=== PATIENT | male | born 1985 | race Hispanic/Latino ===

== ENCOUNTER 2017-10-28 13:21 | Emergency (ER) | payer OTHER, SELFPAY ==
[2017-10-28] MEDS ORDERED: NA CHLORIDE 0.9% 1,000 ML ONE (15:13)
[2017-10-28] MEDS ORDERED: ONDANSETRON 4 MG/2 ML VIAL ONE (15:13)
[2017-10-28] MEDS ORDERED: KETOROLAC 30 MG/ML INJ ONE (15:13)
[2017-10-28 15:29] LABS: Absolute Lymphocytes (CBC) 1.6 K/uL (0.7-4.9); Absolute Monocytes 0.3 K/uL (0.1-1.3); Absolute Neutrophil 2.4 K/uL (1.8-8.0); Basophils % 0.9 % (0-1.3); Eosinophils % 2.8 % (0-4.4); Lymphocytes % 35.6 % (15.3-44.8); MCH 32.7 pg (27.0-35.0); MCV 95.4 fL (80-100); MPV 7.5 fL (7.6-11.3); Monocytes % 6.7 % (3.3-12.3); RBC Red Blood Cell Count 4.93 M/uL (4.33-5.43)
[2017-10-28 15:39] LABS: Bicarbonate 29 mEq/L (21-31); Glucose Level 91 mg/dL (65-120); Lipase 35 U/L (22-51); Sodium Level 135 mEq/L (135-145)
--- NOTE | 2017-10-28 15:43 | RAD REPORT ---
EXAM DESCRIPTION: CT - Stone Protocol - 10/28/2017 3:28 pm CLINICAL HISTORY: Abdominal pain, left flank pain COMPARISON: None. TECHNIQUE: Axial 5 mm thick images were obtained without oral or IV contrast. The [id number] span s the entirety of the system partially obscuring uppermost abdomen and lung bases. All CT scans are performed using dose optimization technique as appropriate and may include automated exposure control or mA/KV adjustment according to patient size. FINDINGS: No hydronephrosis is present and no obstructing ureteral calculi. No suspicious renal mass es. Isodense masses and pyelonephritis are not excluded on a stone protocol CT scan. A 3 millimeter n onobstructing calyx calcification present mid right kidney. Partially filled urinary bladder shows no suspicious finding. No prostate or seminal vesicle abnormality seen. Imaged portions of the liver, spleen and pancreas show no suspicious findings on non-contrast imaging . No gallbladder or biliary tree abnormality identified. No significant adrenal finding. No suspicious bowel findings. No hernia, mass or bulky lymphadenopathy noted. No free air, free fluid or inflammatory stranding. No significant bony abnormality. IMPRESSION: No hydronephrosis, obstructing calculus or acute finding. A 3 mm calyx calcification present on the right. Isodense masses and pyelonephritis are not excluded on stone protocol technique. Remainder the study also without acute or significant finding.
[2017-10-28 15:45] LABS: ALT/SGPT 22 IU/L (10-60); AST/SGOT 22 IU/L (10-42); Albumin 4.5 g/dL (3.2-5.5); Alkaline Phosphatase 60 IU/L (42-121); Amylase Level 79 U/L (28-100); BUN Blood Urea Nitrogen 15 mg/dL (6-20); Bilirubin Direct 0.1 mg/dL (0-0.2); Bilirubin Total 0.9 mg/dL (0.3-1.2); Protein, Total 7.4 g/dL (6.0-8.3)
--- NOTE | 2017-10-28 16:16 | ER ---
Nurse's Notes [facility] Name: Danny Anderson II Age: 32 yrs Sex: Male : 1985 Arrival Date: 10/28/2017 Time: 13:23 Bed 16 Private MD: None, None Diagnosis: Flank Pain Presentation: 10/28 13:47 Presenting complaint: Patient states: " I am having pain in my side and they told me a ph while back that I had a kidney disease and I wanted to get it checked out." Pt reports pain in L upper flank and nausea, denies V/D or urinary symptoms. Transition of care: patient was not received from another setting of care. Onset of symptoms was October 28, 2017. Risk Assessment: Do you want to hurt yourself or someone else? Patient reports no desire to harm self or others. Initial Sepsis Screen: Does the patient meet any 2 criteria? No. Patient's initial sepsis screen is negative. Does the patient have a suspected source of infection? No. Patient's initial sepsis screen is negative. Care prior to arrival: None. 13:47 Method Of Arrival: Ambulatory ph 13:47 Acuity: UMER 3 ph Historical: - Allergies: 13:50 No Known Allergies; ph - PMHx: 13:50 Bipolar disorder; Schizophrenia; ph - PSHx: 13:50 None; ph - Immunization history:: Adult Immunizations unknown. - Social history:: Smoking status: Patient uses tobacco products, denies chronic smoking, but will smoke occasionally. - Ebola Screening: : No symptoms or risks identified at this time. Screenin:06 Abuse screen: Denies threats or abuse. Denies injuries from another. Nutritional aj screening: No deficits noted. Tuberculosis screening: No symptoms or risk factors identified. Fall Risk None identified. Assessment: 15:06 General: Appears in no apparent distress. uncomfortable, Behavior is calm, cooperative, aj appropriate for age. Pain: Complains of pain in anterior aspect of left lateral abdomen and posterior aspect of left lateral abdomen. Neuro: Level of Consciousness is awake, alert, obeys commands, Oriented to person, place, time, situation, Appropriate for age. Respiratory: Airway is patent Respiratory effort is even, unlabored, Respiratory pattern is regular, symmetrical. : Reports pain in right flank(s). Derm: Skin is intact, is healthy with good turgor, Skin is pink, warm \\T\\ dry. normal. 16:44 Reassessment: Patient appears in no apparent distress at this time. No changes from aj previously documented assessment. Patient and/or family updated on plan of care and expected duration. Pain level reassessed. Patient is alert, oriented x 3, equal unlabored respirations, skin warm/dry/pink. Patient states feeling better. Patient states symptoms have improved. Vital Signs: 13:50 BP 102 / 66; Pulse 70; Resp 18; Temp 97.5; Pulse Ox 99% on R/A; Weight 61.23 kg; Height ph 4 ft. 11 in. (149.86 cm); Pain 4/10; 16:44 BP 105 / 75; Pulse 86; Resp 16; Temp 98.4; Pulse Ox 99% on R/A; aj 13:50 Body Mass Index 27.27 (61.23 kg, 149.86 cm) ph ED Course: 13:23 Patient arrived in ED. mr 13:23 None, None is Private Physician. mr 13:50 Triage completed. ph 15:00 Judy Hilton, ZACHARIAH is Primary Nurse. aj 15:00 Phoenix Cedeño PA is PHCP. [facility] 15:00 Scar Parrish MD is Attending Physician. [facility] 15:06 Arm band placed on left wrist. Patient placed. aj 15:06 Patient has correct armband on for positive identification. 15:19 Patient moved to MD. 15:22 Initial lab(s) drawn, by nj, sent to lab. Inserted saline lock: 20 gauge in left dh3 antecubital area, using aseptic technique. Blood collected. 15:28 CT completed. Patient tolerated procedure well. Patient moved back from MD. [facility] 15:28 CT Stone Protocol In Process Unspecified. EDMS 16:44 No provider procedures requiring assistance completed. IV discontinued, intact, aj bleeding controlled, No redness/swelling at site. Pressure dressing applied. Administered Medications: 15:22 Drug: NS 0.9% 1000 ml Route: IV; Rate: 125 ml/hr; Site: left antecubital; aj 16:47 Follow up: Response: No adverse reaction; IV Status: Order to discontinue infusion; IV aj Intake: 250ml 15:23 Drug: Ketorolac 30 mg Route: IVP; Site: left antecubital; aj 16:48 Follow up: Response: Pain is decreased aj 15:23 Drug: Zofran 4 mg Route: IVP; Site: left antecubital; aj 16:47 Follow up: Response: Nausea is decreased aj Intake: 16:47 IV: 250ml; Total: 250ml. aj Outcome: 16:15 Discharge ordered by . smith 16:44 Discharged to home ambulatory. agnes 16:44 Condition: good 16:44 Discharge instructions given to patient, Instructed on discharge instructions, follow up and referral plans. Demonstrated understanding of instructions, follow-up care. 16:48 Patient left the ED. aj Signatures: Dispatcher [employer] Judy John RN RN aj Mickail, Joel, PA PA jmm Rivera, Maria mr Hall, Patricia, RN RN ph Warren, Shannon sw McGuire, Victoria [facility] Rylee Mckenzie 3
--- NOTE | 2017-10-28 16:16 | EDPHYS ---
Physician Documentation [facility] Name: Danny Anderson II Age: 32 yrs Sex: Male : 1985 Arrival Date: 10/28/2017 Time: 13:23 Bed 16 Private MD: None, None ED Physician Scar Parrish HPI: 10/28 15:11 This 32 yrs old Male presents to ER via Ambulatory with complaints of Flank jmm Pain. 15:11 The pain does not radiate. Onset: The symptoms/episode began/occurred gradually, at jmm noon. Modifying factors: The symptoms are alleviated by nothing. the symptoms are aggravated by nothing. Associated signs and symptoms: Pertinent positives: nausea, Pertinent negatives: vomiting. This is a 32 year old male that presents to the ED with left flank pain beginning at approx 12 pm today. patient states he was diagnosed with an unspecified kidney disease 1 month ago. Patient denies fever, vomiting, but states he feels nauseous. Patient denies testicular pain or abdominal pain. . Historical: - Allergies: 13:50 No Known Allergies; ph - PMHx: 13:50 Bipolar disorder; Schizophrenia; ph - PSHx: 13:50 None; ph - Immunization history:: Adult Immunizations unknown. - Social history:: Smoking status: Patient uses tobacco products, denies chronic smoking, but will smoke occasionally. - Ebola Screening: : No symptoms or risks identified at this time. ROS: 15:11 Constitutional: Negative for fever, chills, and weight loss, Cardiovascular: Negative jmm for chest pain, palpitations, and edema, Respiratory: Negative for shortness of breath, cough, wheezing, and pleuritic chest pain. 15:11 Skin: Negative for injury, rash, and discoloration, Neuro: Negative for headache, weakness, numbness, tingling, and seizure. 15:11 Abdomen/GI: Positive for flank pain. 15:11 Back: Positive for flank pain. 15:11 All other systems are negative. Exam: 15:11 Head/Face: atraumatic. Cardiovascular: Regular rate and rhythm. No gallops, murmurs, jmm or rubs. Full/Equal distal pulses. Respiratory: Lungs have equal breath sounds bilaterally, clear to auscultation. No rales, rhonchi or wheezes noted. No increased work of breathing, no retractions or nasal flaring. 15:11 Constitutional: The patient appears alert, awake, anxious. 15:11 Abdomen/GI: Inspection: abdomen appears normal, Bowel sounds: normal, Palpation: soft, mild abdominal tenderness, in the posterior aspect of left lateral abdomen. 15:11 Back: CVA tenderness, that is mild, is noted on the left. 15:11 Musculoskeletal/extremity: ROM: intact in all extremities. 15:11 Skin: Appearance: Color: normal in color. 15:11 Neuro: Orientation: is normal, Mentation: is normal, Memory: is normal, Gait: is steady. Vital Signs: 13:50 BP 102 / 66; Pulse 70; Resp 18; Temp 97.5; Pulse Ox 99% on R/A; Weight 61.23 kg; Height ph 4 ft. 11 in. (149.86 cm); Pain 4/10; 16:44 BP 105 / 75; Pulse 86; Resp 16; Temp 98.4; Pulse Ox 99% on R/A; aj 13:50 Body Mass Index 27.27 (61.23 kg, 149.86 cm) ph MDM: 15:09 Patient medically screened. [facility] 15:11 Differential diagnosis: nephrolithiasis, pyelonephritis. Data reviewed: vital signs, [facility] nurses notes. 15:47 Data reviewed: radiologic studies, CT scan. [facility] 15:47 Response to treatment: the patient's symptoms have resolved after treatment. ED course: [facility] Patient states feeling much better after administration of ketorloc. CT imagaing studies reveal no acute intrabdominal process. Patient is advised to establish himself with PCP. Given return precautions. Agrees with the plan of care. . 10/28 14:26 Order name: Urine Drug Screen [facility] 10/28 14:26 Order name: Urine Culture [facility] 10/28 14:26 Order name: Urine Microscopic Only [facility] 10/28 15:03 Order name: Amylase, Serum; Complete Time: 15:47 [facility] 10/28 15:03 Order name: Basic Metabolic Panel; Complete Time: 15:47 [facility] 10/28 15:03 Order name: CBC with Diff; Complete Time: 15:47 [facility] 10/28 15:03 Order name: Creatinine for Radiology; Complete Time: 15:47 [facility] 10/28 15:03 Order name: Hepatic Function; Complete Time: 15:47 [facility] 10/28 15:03 Order name: Lipase; Complete Time: 15:47 [facility] 10/28 15:17 Order name: CT Stone Protocol; Complete Time: 15:47 [facility] 10/28 15:35 Order name: Urine Dipstick--Ancillary (enter results) bd 10/28 14:26 Order name: Urine Dipstick-Ancillary (obtain specimen); Complete Time: 16:24 snw 10/28 15:03 Order name: IV Saline Lock; Complete Time: 15:22 [facility] 10/28 15:03 Order name: Labs collected and sent; Complete Time: 15:22 [facility] Administered Medications: 15:22 Drug: NS 0.9% 1000 ml Route: IV; Rate: 125 ml/hr; Site: left antecubital; aj 16:47 Follow up: Response: No adverse reaction; IV Status: Order to discontinue infusion; IV aj Intake: 250ml 15:23 Drug: Ketorolac 30 mg Route: IVP; Site: left antecubital; aj 16:48 Follow up: Response: Pain is decreased aj 15:23 Drug: Zofran 4 mg Route: IVP; Site: left antecubital; aj 16:47 Follow up: Response: Nausea is decreased Disposition: 18:50 Co-signature as Attending Physician, Scar Parrish MD I agree with the assessment and kdr plan of care. Disposition: 10/28/17 16:15 Discharged to Home. Impression: Flank Pain. - Condition is Stable. - Discharge Instructions: Flank Pain. - Medication Reconciliation Form, Thank You Letter, Antibiotic Education, Prescription Opioid Use form. - Follow up: Private Physician; When: As needed; Reason: Continuance of care. - Notes: Please follow up with your primary care provider in 1 to 2 days for reevaluation. Please return to the ED if you develop increased pain, vomiting, fever, abdominal pain, or any other concerning symptoms. Signatures: Dispatcher [employer] Judy John RN RN aj Rittger, Kevin, MD MD kdr Therrien, Shelly, [employer] SAW OPERATOR-C [employer] SAW OPERATOR-Csnw Phoenix Cedeño PA PA Debra Cao RN RN ph Corrections: (The following items were deleted from the chart) 16:48 16:15 10/28/2017 16:15 Discharged to Home. Impression: Flank Pain. Condition is Stable. aj Forms are Medication Reconciliation Form, Thank You Letter, Antibiotic Education, Prescription Opioid Use. Follow up: Private Physician; When: As needed; Reason: Continuance of care. smith
[2017-10-28 17:08] LABS: Urine Blood TRACE (NEG); Urine Glucose NEGATIVE (NEG); Urine Protein NEGATIVE (NEG)
[2017-10-28 17:12] LABS: Barbiturates NEGATIVE (NEGATIVE); Benzodiazepines NEGATIVE (NEGATIVE); Cocaine NEGATIVE (NEGATIVE); METHAMPHETAM NEGATIVE (NEGATIVE); Opiates NEGATIVE (NEGATIVE); Phencyclidine NEGATIVE (NEGATIVE); THC Cannibis POSITIVE (NEGATIVE)
[2017-10-28 18:11] LABS: Calcium Oxalate Crystals- Ur FEW (NONE SEEN); Urine Bacteria <20 /HPF (NONE SEEN); Urine Culture Reflex Order NOT NEEDED; Urine RBC <5 /HPF (NONE SEEN)
== END 2017-10-28 16:48 | disposition home or self-care (01) ==
LOC: ER 13:21
DX: R10.9 Unspecified abdominal pain (principal); Z72.0 Tobacco use
CPT/HCPCS: 36415; 74176; 76377; 80048; 80076; 80307; 81003; 81015; 82150; 83690; 85025; 87086; 87088; 96361; 96374; 96375; 99284; J2405; J7030

== ENCOUNTER 2018-07-20 23:27 | Inpatient (IN) | payer OTHER ==
[2018-07-20] MEDS ORDERED: ACTIVATED CHARCOAL 25 GM/120 ML TUBE ONE (23:58)
[2018-07-20] MEDS ORDERED: NA CHLORIDE 0.9% 1,000 ML ONE (23:59)
[2018-07-21 00:05] LABS: Absolute Lymphocytes (CBC) 1.8 K/uL (0.7-4.9); Absolute Monocytes 0.3 K/uL (0.1-1.3); Absolute Neutrophil 1.7 K/uL (1.8-8.0); Eosinophils % 1.4 % (0-4.4); Hematocrit 43.8 % (39.6-49.0); Lymphocytes % 46.3 % (15.3-44.8); MPV 7.4 fL (7.6-11.3); Monocytes % 8.6 % (3.3-12.3); RBC Red Blood Cell Count 4.61 M/uL (4.33-5.43)
[2018-07-21] MEDS ORDERED: ONDANSETRON 4 MG/2 ML VIAL ONE (00:06)
[2018-07-21 00:08] LABS: Protime INR 0.97
[2018-07-21 00:37] LABS: ALT/SGPT 24 U/L (12-78); AST/SGOT 18 U/L (15-37); Albumin 3.6 g/dL (3.4-5.0); Alkaline Phosphatase 83 U/L (45-117); BUN Blood Urea Nitrogen 9 mg/dL (7-18); Bicarbonate 30 mmol/L (21-32); Bilirubin Direct < 0.1 mg/dL (0-0.2); Bilirubin Total 0.2 mg/dL (0.2-1.0); Glucose Level 153 mg/dL (74-106); Potassium 3.4 mmol/L (3.5-5.1); Protein, Total 6.6 g/dL (6.4-8.2); Sodium Level 141 mmol/L (136-145)
[2018-07-21 00:52] LABS: Urine Blood NEGATIVE (NEG); Urine Glucose NEGATIVE (NEG); Urine Protein NEGATIVE (NEG); Urine Specific Gravity 1.015 (1.005-1.030)
--- NOTE | 2018-07-21 01:22 | EDPHYS ---
Physician Documentation [facility] Name: Danny Anderson II Age: 33 yrs Sex: Male : 1985 Arrival Date: 07/20/2018 Time: 23:32 Bed 3 Private MD: ED Physician Kt Blanca HPI: 07/21 01:55 This 33 yrs old Male presents to ER via EMS with complaints of Overdose. wa 01:55 The patient presents to the emergency department after a known overdose, that was wa intentional. Context: Method: the patient has a confirmed or suspected ingestion, Time: just prior to arrival, Extent: the original prescription was for 55 pills/capsules, 55 hydroxyzine. 7 olanzapine, the OD/poisoning occurred at at home, and was witnessed by family, Psychiatric history: the patient has a known psychiatric disorder, bipolar disorder, schizophrenia, Previous OD/poisoning history: yes. Associated signs and symptoms: Pertinent negatives: anxiety, apnea, diarrhea, dizziness, loss of consciousness, palpitations, shortness of breath, visual hallucinations, vomiting. Severity of symptoms: At their worst the symptoms were moderate in the emergency department the symptoms are unchanged. The patient has experienced a previous episode. The patient has not recently seen a physician. Historical: - Allergies: 07/20 23:38 No Known Allergies; fc - Home Meds: 23:38 hydroxyzine HCl 50 mg Oral tab 1 tab three times a day [Active]; olanzapine 10 mg oral fc tab 1 tab once daily [Active]; - PMHx: 23:38 Bipolar disorder; Schizophrenia; fc - PSHx: 23:38 None; fc - Immunization history:: Last tetanus immunization: up to date Flu vaccine is up to date. - Social history:: Smoking status: Patient/guardian denies using tobacco, Patient/guardian denies using alcohol, street drugs. - Ebola Screening: : Patient negative for fever greater than or equal to 101.5 degrees Fahrenheit, and additional compatible Ebola Virus Disease symptoms Patient denies exposure to infectious person Patient denies travel to an Ebola-affected area in the 21 days before illness onset. - Family history:: not pertinent. - Hospitalizations: : No recent hospitalization is reported. ROS: 07/21 01:58 Constitutional: Negative for fever, chills, and weight loss, Eyes: Negative for injury, wa pain, redness, and discharge, ENT: Negative for injury, pain, and discharge, Neck: Negative for injury, pain, and swelling, Cardiovascular: Negative for chest pain, palpitations, and edema, Respiratory: Negative for shortness of breath, cough, wheezing, and pleuritic chest pain, Abdomen/GI: Negative for abdominal pain, nausea, vomiting, diarrhea, and constipation, Back: Negative for injury and pain, : Negative for injury, bleeding, discharge, and swelling, MS/Extremity: Negative for injury and deformity, Skin: Negative for injury, rash, and discoloration, Neuro: Negative for headache, weakness, numbness, tingling, and seizure. Psych: Positive for suicide gesture, suicidal ideation. All other systems are negative. Exam: 01:58 Constitutional: This is a well developed, well nourished patient who is awake, alert, wa and in no acute distress. Head/Face: Normocephalic, atraumatic. Eyes: Pupils equal round and reactive to light, extra-ocular motions intact. Lids and lashes normal. Conjunctiva and sclera are non-icteric and not injected. Cornea within normal limits. Periorbital areas with no swelling, redness, or edema. ENT: Nares patent. No nasal discharge, no septal abnormalities noted. Tympanic membranes are normal and external auditory canals are clear. Oropharynx with no redness, swelling, or masses, exudates, or evidence of obstruction, uvula midline. Mucous membranes moist. Neck: Trachea midline, no thyromegaly or masses palpated, and no cervical lymphadenopathy. Supple, full range of motion without nuchal rigidity, or vertebral point tenderness. No Meningismus. Chest/axilla: Normal chest wall appearance and motion. Nontender with no deformity. No lesions are appreciated. Cardiovascular: Regular rate and rhythm with a normal S1 and S2. No gallops, murmurs, or rubs. Normal PMI, no JVD. No pulse deficits. Respiratory: Lungs have equal breath sounds bilaterally, clear to auscultation and percussion. No rales, rhonchi or wheezes noted. No increased work of breathing, no retractions or nasal flaring. Abdomen/GI: Soft, non-tender, with normal bowel sounds. No distension or tympany. No guarding or rebound. No evidence of tenderness throughout. Back: No spinal tenderness. No costovertebral tenderness. Full range of motion. Skin: Warm, dry with normal turgor. Normal color with no rashes, no lesions, and no evidence of cellulitis. MS/ Extremity: Pulses equal, no cyanosis. Neurovascular intact. Full, normal range of motion. Neuro: Awake and alert, GCS 15, oriented to person, place, time, and situation. Cranial nerves II-XII grossly intact. Motor strength 5/5 in all extremities. Sensory grossly intact. Cerebellar exam normal. Normal gait. 01:58 Psych: Behavior/mood is cooperative, Affect is flat, Patient having thoughts of suicide. Judgement / Insight is normal. Delusions/hallucinations are not present. Vital Signs: 07/20 23:25 BP 146 / 98; Pulse 97; Resp 18; Temp 97.8(O); Pulse Ox 100% on R/A; Weight 61.23 kg fc (R); Height 5 ft. 2 in. (157.48 cm) (R); Pain 0/10; 23:45 BP 129 / 83; Pulse 85; Resp 18; Pulse Ox 99% on R/A; ao 07/21 00:00 BP 126 / 79; Pulse 77; Resp 18; Pulse Ox 99% on R/A; ao 00:15 BP 126 / 89; Pulse 100; Resp 18; Pulse Ox 99% on R/A; ao 00:30 BP 125 / 74; Pulse 79; Resp 16; Pulse Ox 98% on R/A; ao 00:50 BP 108 / 68; Pulse 78; Resp 15; Pulse Ox 98% on R/A; Pain 0/10; ao 01:15 BP 103 / 73; Pulse 75; Resp 19; Pulse Ox 98% on R/A; ao 01:40 BP 109 / 63; Pulse 75; Resp 16; Pulse Ox 98% on R/A; ao 02:00 BP 101 / 72; Pulse 73; Resp 16; Pulse Ox 73% on R/A; Pain 0/10; ao 02:15 BP 103 / 72; Pulse 78; Resp 18; Pulse Ox 99% on R/A; ao 07/20 23:25 Body Mass Index 24.69 (61.23 kg, 157.48 cm) fc MDM: 07/20 23:37 Patient medically screened. ak 07/21 01:59 Differential diagnosis: Ingestion/exposure to ingestion. charcoal. EKG. per poison wa control, bicarb if wide QRS. 02:01 Data reviewed: vital signs, nurses notes. Test interpretation: by ED physician or ak midlevel provider: K 3.4. UDS noted for THC. Glucose 153. Response to treatment: the patient's symptoms have mildly improved after treatment. 07/20 23:38 Order name: Acetaminophen; Complete Time: 01:38 ak 07/20 23:38 Order name: Basic Metabolic Panel; Complete Time: 01:38 ak 07/20 23:38 Order name: CBC with Diff; Complete Time: 01:38 ak 07/20 23:38 Order name: ETOH Level; Complete Time: 01:38 ak 07/20 23:38 Order name: Hepatic Function; Complete Time: 01:38 ak 07/20 23:38 Order name: PT-INR; Complete Time: 01:38 ak 07/20 23:38 Order name: Ptt, Activated; Complete Time: 01:38 ak 07/20 23:38 Order name: Salicylate; Complete Time: 01:38 ak 07/20 23:38 Order name: Urine Drug Screen; Complete Time: 01:38 ak 07/20 23:38 Order name: EKG; Complete Time: 23:39 ak 07/21 00:38 Order name: Urine Dipstick--Ancillary (enter results); Complete Time: 01:38 [facility] 07/20 23:38 Order name: EKG - Nurse/Tech; Complete Time: 23:42 ak 07/20 23:38 Order name: IV Saline Lock; Complete Time: 23:42 ak 07/20 23:38 Order name: Labs collected and sent; Complete Time: 23:42 ak 07/20 23:38 Order name: Urine Dipstick-Ancillary (obtain specimen); Complete Time: 00:47 ak 07/21 01:30 Order name: CONS Pharmacy Consult EDMS 07/21 01:30 Order name: Regular EDMS Administered Medications: 07/20 23:55 Drug: NS 0.9% 1000 ml Route: IV; Rate: 1 bolus; Site: right upper arm; ao 07/21 02:21 Follow up: IV Status: Completed infusion; IV Intake: 1000ml ao 07/20 23:55 Drug: Charcoal Suspension 50 grams Route: PO; ao 07/21 02:21 Follow up: Response: No adverse reaction ao 00:00 Drug: Zofran 4 mg Route: IVP; Site: right upper arm; ao 02:20 Follow up: Response: No adverse reaction ao Disposition: 07/21/18 01:21 Hospitalization ordered by Bijan Rader for Inpatient Admission. Preliminary diagnosis are Intentional drug overdose, Suicidal attempt. - Bed requested for Intensive Care Unit. - Status is Inpatient Admission. ao - Condition is Stable. - Problem is new. - Symptoms have improved. UTI on Admission? No Signatures: Dispatcher [employer] EDMS Paty Bonilla RN RN Savanah Downing RN ZACHARIAH Raji Fitzgerald RN RN ao [facility] MD MD wa Corrections: (The following items were deleted from the chart) 01:38 01:21 Hospitalization Ordered by Bijan Rader MD for Inpatient Admission. Preliminary diagnosis is Intentional drug overdose; Suicidal attempt. Bed requested for Telemetry/MedSurg (Inpatient). Status is Inpatient Admission. Condition is Stable. Problem is new. Symptoms have improved. UTI on Admission? No. wa 02:38 01:38 07/21/2018 01:21 Hospitalization Ordered by Bijan Rader MD for Inpatient ao Admission. Preliminary diagnosis is Intentional drug overdose; Suicidal attempt. Bed requested for Intensive Care Unit. Status is Inpatient Admission. Condition is Stable. Problem is new. Symptoms have improved. UTI on Admission? No. ebenezer
--- NOTE | 2018-07-21 01:22 | ER ---
Nurse's Notes [facility] Name: Danny Anderson II Age: 33 yrs Sex: Male : 1985 Arrival Date: 07/20/2018 Time: 23:32 Bed 3 Private MD: Diagnosis: Intentional drug overdose;Suicidal attempt Presentation: 07/20 23:25 Presenting complaint: EMS states: that pt took Hydroxyzine 50 mg 55 tablets and fc Olanzapine 10 mg 7 tablets at 2300 because his girlfriend was leaving him. Pt states that he was not trying to kill himself just trying to stop her from leaving. 23:25 Method Of Arrival: EMS: [facility] 23:32 Transition of care: patient was not received from another setting of care. Onset of fc symptoms was July 20, 2018 at 23:00. Risk Assessment: Do you want to hurt yourself or someone else? Patient reports desire/thoughts of hurting themselves or someone else. Provider notified. Initial Sepsis Screen: Does the patient meet any 2 criteria? HR > 90 bpm. Yes Does the patient have a suspected source of infection? No. Patient's initial sepsis screen is negative. Care prior to arrival: Medication(s) given: Normal saline infusion, 700 ml IV initiated. 18 GA, in the left antecubital area, Glucose check: 119. 23:32 Acuity: UMER 2 fc Historical: - Allergies: 23:38 No Known Allergies; fc - Home Meds: 23:38 hydroxyzine HCl 50 mg Oral tab 1 tab three times a day [Active]; olanzapine 10 mg oral fc tab 1 tab once daily [Active]; - PMHx: 23:38 Bipolar disorder; Schizophrenia; fc - PSHx: 23:38 None; fc - Immunization history:: Last tetanus immunization: up to date Flu vaccine is up to date. - Social history:: Smoking status: Patient/guardian denies using tobacco, Patient/guardian denies using alcohol, street drugs. - Ebola Screening: : Patient negative for fever greater than or equal to 101.5 degrees Fahrenheit, and additional compatible Ebola Virus Disease symptoms Patient denies exposure to infectious person Patient denies travel to an Ebola-affected area in the 21 days before illness onset. - Family history:: not pertinent. - Hospitalizations: : No recent hospitalization is reported. Screenin:25 Abuse screen: Denies threats or abuse. Nutritional screening: No deficits noted. fc Tuberculosis screening: No symptoms or risk factors identified. Fall Risk None identified. Assessment: 23:32 General: Appears in no apparent distress. uncomfortable, well groomed, well developed, ao Behavior is calm, cooperative, appropriate for age. Pain: Denies pain. Neuro: Level of Consciousness is awake, alert, obeys commands, Oriented to person, place, time, situation, Appropriate for age Moves all extremities. Full function Speech is normal, Facial symmetry appears normal. Cardiovascular: Heart tones S1 S2 Capillary refill < 3 seconds Patient's skin is warm and dry. Respiratory: Airway is patent Trachea midline Respiratory effort is even, unlabored, Respiratory pattern is regular, symmetrical. GI: Abdomen is flat, non-distended. : No signs and/or symptoms were reported regarding the genitourinary system. EENT: No signs and/or symptoms were reported regarding the EENT system. Derm: Skin is intact, Skin is pink, warm \\T\\ dry. normal, Skin temperature is warm. Musculoskeletal: Circulation, motion, and sensation intact. Range of motion:. 23:43 Reassessment: Poison control Mela notified of ingestion. Recommends charcoal now, fc complete toxic workup with UDS and EKG. Repeat Tylenol and ASA in 4 hrs. Monitor for tachycardia, prolonged QRS, and Seizures. If QRS > 100 then give Sodium Bicarb 3 amps in D5W 1000 ml. Give Benzo's if needed. Monitor for at least 6-8 hrs or when pt returns to baseline. 07/21 00:53 Reassessment: Patient appears in no apparent distress at this time. Patient and/or ao family updated on plan of care and expected duration. Pain level reassessed. Patient AOX4 talking to family at this time. Sitter at bedside one on one. 01:37 Reassessment: Patient appears in no apparent distress at this time. Family left room. ao Patient with eyes close in no apparent distress. sitter at bedside. 02:19 Reassessment: Patient appears in no apparent distress at this time. Report given to mendel Benitez RN. Patient to be taking to ICU. Psych: 07/20 23:40 Subjective: Patient's mood is sad, hopeless, Delusions are denied, Hallucinations are fc denied Having thoughts of suicide. Plan for suicide is take a "bunch" of pill. Objective: Patient is cooperative, using poor eye contact, Speech is normal, Affect is appropriate. Interventions: Removed personal items and placed in bag. Patient placed in hospital gown. Searched person for dangerous items. Suicide Risk Assessment: Sad Person Scale: Sex of patient: Male: Score 1 point. Age of patient: Score 1 point if patient 15-34. Depression: Score 1 point if signs of depression are present. Previous Attempt: Score 1 point if patient has previously attempted suicide. Substance Abuse: Score 0 point if patient does not abuse alcohol or drugs. Rational Thinking: Score 1 point if patient is lacking rational thinking. Social Support: Score 1 point if social support is lacking and/or unavailable. Organized Plan: Score 1 point if patient had a plan in place. Relationship: Score 0 point if patient has a spouse or domestic partner. Chronic Sickness: Score 1 point if patient has illness, chronic, debilitating, or severe. TOTAL POINTS: If total points are 7-10, the proposed clinical action is to hospitalize or commit. Implement suicide precautions. Safety Checks: Personal items have been removed. Door is open. No visitors are present at this time. Pt denies substance abuse. 07/21 00:22 Commitment: Patient will be a voluntary commitment. ao Overdose: 07/20 23:39 Patient took Hydroxyzine 50 mg - 55 tablets and Olanzapine 10 mg - 7 tablets. Overdose fc occurred 30 minutes to 1 hour ago. Vital Signs: 23:25 BP 146 / 98; Pulse 97; Resp 18; Temp 97.8(O); Pulse Ox 100% on R/A; Weight 61.23 kg fc (R); Height 5 ft. 2 in. (157.48 cm) (R); Pain 0/10; 23:45 BP 129 / 83; Pulse 85; Resp 18; Pulse Ox 99% on R/A; ao 07/21 00:00 BP 126 / 79; Pulse 77; Resp 18; Pulse Ox 99% on R/A; ao 00:15 BP 126 / 89; Pulse 100; Resp 18; Pulse Ox 99% on R/A; ao 00:30 BP 125 / 74; Pulse 79; Resp 16; Pulse Ox 98% on R/A; ao 00:50 BP 108 / 68; Pulse 78; Resp 15; Pulse Ox 98% on R/A; Pain 0/10; ao 01:15 BP 103 / 73; Pulse 75; Resp 19; Pulse Ox 98% on R/A; ao 01:40 BP 109 / 63; Pulse 75; Resp 16; Pulse Ox 98% on R/A; ao 02:00 BP 101 / 72; Pulse 73; Resp 16; Pulse Ox 73% on R/A; Pain 0/10; ao 02:15 BP 103 / 72; Pulse 78; Resp 18; Pulse Ox 99% on R/A; ao 07/20 23:25 Body Mass Index 24.69 (61.23 kg, 157.48 cm) ED Course: 07/20 23:25 Arm band placed on Patient placed in an exam room, on a stretcher. fc 23:25 Patient has correct armband on for positive identification. Placed in gown. Bed in low fc position. Call light in reach. Side rails up X 1. rag sorter on. Pulse ox on. NIBP on. 23:30 Inserted saline lock: 18 gauge in right upper arm, using aseptic technique. Blood lp1 collected. 23:32 Patient arrived in ED. fc 23:36 Triage completed. fc 23:37 Kt Blanca MD is Attending Physician. wa 23:41 Raji Fitzgerald RN is Primary Nurse. ao 23:45 Safety Checks: Personal items have been removed. The door is open or patient has been ao placed in a hallway bed/chair. There are no family/friend visitors at this time Sitter present at this time. 07/21 00:00 Safety Checks: Personal items have been removed. The door is open or patient has been ao placed in a hallway bed/chair. There are no family/friend visitors at this time Sitter present at this time. 00:15 Safety Checks: Personal items have been removed. The door is open or patient has been ao placed in a hallway bed/chair. There are no family/friend visitors at this time Sitter present at this time. 00:30 Safety checks: Items removed: yes. Door open/sign placed on door: yes. Family/friend oe present: yes. Sitter present: Yes. 00:45 Safety checks: Items removed: yes. Door open/sign placed on door: yes. Family/friend oe present: yes. Sitter present: Yes. 01:00 Safety checks: Items removed: yes. Door open/sign placed on door: yes. Family/friend oe present: no. Sitter present: Yes. 01:15 Safety checks: Items removed: yes. Door open/sign placed on door: yes. Family/friend oe present: no. Sitter present: Yes. 01:20 Bijan Rader MD is Hospitalizing Provider. 01:30 Safety checks: Items removed: yes. Door open/sign placed on door: yes. Family/friend oe present: no. Sitter present: Yes. 01:45 Safety checks: Items removed: yes. Door open/sign placed on door: yes. Family/friend oe present: no. Sitter present: Yes. 02:00 Safety checks: Items removed: yes. Door open/sign placed on door: yes. Family/friend oe present: no. Sitter present: Yes. 02:15 Safety checks: Items removed: yes. Door open/sign placed on door: yes. Family/friend oe present: yes. Sitter present: Yes. 02:18 No provider procedures requiring assistance completed. Patient admitted, IV remains in ao place. 02:30 Safety checks: Items removed: yes. Door open/sign placed on door: yes. Family/friend oe present: yes. Sitter present: Yes. Administered Medications: 07/20 23:55 Drug: NS 0.9% 1000 ml Route: IV; Rate: 1 bolus; Site: right upper arm; ao 07/21 02:21 Follow up: IV Status: Completed infusion; IV Intake: 1000ml ao 07/20 23:55 Drug: Charcoal Suspension 50 grams Route: PO; ao 07/21 02:21 Follow up: Response: No adverse reaction ao 00:00 Drug: Zofran 4 mg Route: IVP; Site: right upper arm; ao 02:20 Follow up: Response: No adverse reaction ao Intake: 02:21 IV: 1000ml; Total: 1000ml. ao Outcome: 01:21 Decision to Hospitalize by Provider. 02:18 Admitted to ICU accompanied by nurse, room 7, Report called to ZACHARIAH Hernandez ao 02:18 Condition: stable 02:18 Instructed on the need for admit. 02:38 Patient left the ED. ao Signatures: Savanah Downing RN RN Mariely Hays RN RN lp1 Raji Fitzgerald RN RN ao Manzano, LuchoKt Ayoub MD MD wa Corrections: (The following items were deleted from the chart) 07/20 23:36 23:32 Presenting complaint: EMS states: that pt took Hydroxyzine 50 mg 55 tablets and fc Olanzapine 10 mg 7 tablets at 2300 because his girlfriend was leaving him. Pt states that he was not trying to kill himself just trying to stop her from leaving. fc 23:36 23:32 Method Of Arrival: EMS: [facility] 07/21 00:55 00:53 Reassessment: Patient appears in no apparent distress at this time. Patient ao and/or family updated on plan of care and expected duration. Pain level reassessed. Patient AOX4 talking to family at this time. ao 01:41 01:15 BP 109 / 63; Pulse 75bpm; Resp 16bpm; Pulse Ox 98% RA; ao ao
[2018-07-21] MEDS ORDERED: ACETAMINOPHEN 500 MG TAB PO PRN (01:27)
[2018-07-21] MEDS ORDERED: ONDANSETRON 4 MG/2 ML VIAL IV PRN (01:27)
[2018-07-21 01:33] LABS: Barbiturates NEGATIVE (NEGATIVE); Benzodiazepines NEGATIVE (NEGATIVE); Cocaine NEGATIVE (NEGATIVE); METHAMPHETAM NEGATIVE (NEGATIVE); Methadone NEGATIVE (NEGATIVE); Opiates NEGATIVE (NEGATIVE); Phencyclidine NEGATIVE (NEGATIVE); THC Cannibis POSITIVE (NEGATIVE)
[2018-07-21] MEDS ORDERED: NA CHLORIDE 0.9% 1,000 ML IV SCH (02:00)
--- NOTE | 2018-07-21 06:51 | EKG ---
Test Date: 2018-07-20 Test Time: 23:37:04 Maintenance Mechanic Telephone: EJ MEASUREMENT RESULTS: Intervals: Rate: 91 NJ: 138 QRSD: 82 QT: 354 QTc: 435 [place]: P: 69 NJ: 138 QRS: 65 T: 46 INTERPRETIVE STATEMENTS: Normal sinus rhythm Normal ECG Compared to ECG 07/12/2017 00:40:22 No significant changes Electronically Signed On 07-21-18 06:50:45 DUMB WAITER OPERATOR by Ezequiel Prajapati
--- NOTE | 2018-07-21 06:56 | P.HP ---
Certification for Inpatient Patient admitted to: Inpatient With expected LOS: >2 Midnights Patient will require the following post-hospital care: Other (Psychiatric evaluation) Practitioner: I am a practitioner with admitting privileges, knowledge of patient current condition, hospital course, and medical plan of care. Services: Services provided to patient in accordance with Admission requirements found in Title 42 Section 412.3 of the Code of Federal Regulations Patient History Date of Service: 07/21/18 Reason for admission: Suicidal ideation and attempt History of Present Illness: Patient is a 33-year-old gentleman who recently had a argument and broke up with his girlfriend. He was very depressed and feeling badly. He stated that he was going to make his girlfriend pay. He ended up taking his home medications which included 55 hydroxyzines & 7 olanzapines. Decision was made to admit the patient to the hospital for further evaluation. We will need to get the [facility] to evaluate patient to see if he needs inpatient admission. Allergies No Known Allergies Allergy (Unverified 07/12/17 02:32) Home Medications: OLANZapine [Zyprexa] 10 mg PO BEDTIME 07/21/18 Sertraline [Zoloft] 100 mg PO DAILY 07/21/18 hydrOXYzine HCl [Atarax] 50 mg PO TID 07/21/18 - Past Medical/Surgical History Has patient received pneumonia vaccine in the past: No Diabetic: No -: Bipolar -: Schizophrenia Past Surgical History: Patient denies surgical history - Family History Father Family History: Reviewed- Non-Contributory - Social History Smoking Status: Never smoker Alcohol use: No CD- Drugs: No Caffeine use: Yes Place of Residence: Home Review of Systems 10-point ROS is otherwise unremarkable Physical Examination - Vital Signs Temperature: 97.7 F Blood Pressure: 95/49 Pulse: 70 Respirations: 13 Pulse Ox (%): 97 - Physical Exam General: Alert, In no apparent distress, Oriented x3 HEENT: Atraumatic, PERRLA, Mucous membr. moist/pink, EOMI, Sclerae nonicteric Neck: Supple, 2+ carotid pulse no bruit, No LAD, Without JVD or thyroid abnormality Respiratory: Clear to auscultation bilaterally, Normal air movement Cardiovascular: Regular rate/rhythm, Normal S1 S2, No murmurs Gastrointestinal: Normal bowel sounds, Soft and benign, Non-distended, No tenderness Musculoskeletal: No clubbing, No swelling, No tenderness Integumentary: No rashes Neurological: Normal gait, Normal speech, Normal strength at 5/5 x4 extr, Normal tone, Sensation intact, Cranial nerves 3-12 intact, Normal affect Lymphatics: No axilla or inguinal lymphadenopathy - Studies Laboratory Data (last 24 hrs) 07/20/18 23:30: PT 11.5, INR 0.97, APTT 31.7 07/20/18 23:30: WBC 4.0 L, Hgb 15.2, Hct 43.8, Plt Count 250 07/20/18 23:30: Sodium 141, Potassium 3.4 L, BUN 9, Creatinine 1.01, Glucose 153 H, Total Bilirubin 0.2, AST 18, ALT 24, Alkaline Phosphatase 83 Assessment & Plan - Problems (Diagnosis) (1) Suicidal behavior Current Visit: Yes Status: Acute - Plan Plan: 1. IV hydration 2. Student Ambassador 3. MR evaluation 4. Monitor on telemetry 5. GI and DVT prophylaxis Discharge Plan: Home Plan to discharge in: 48 Hours - Advance Directives Does patient have a Living Will: No Does patient have a Durable POA for Healthcare: No - Code Status/Comfort Care Code Status Assessed: Yes Code Status: Full Code Critical Care: No Time Spent Managing PTS Care (In Minutes): 45
[2018-07-21] MEDS ORDERED: SERTRALINE HCL 100 MG TAB PO SCH (09:00)
[2018-07-21] MEDS: hydrOXYzine HCl 25 MG TAB PO SCH ×2 (09:21→15:22)
[2018-07-21] MEDS ORDERED: OLANZapine 10 MG TABLET PO SCH (21:00)
== END 2018-07-21 18:13 | DRG 918 ==
LOC: ER 23:27 → ERHOLD 07-21 02:13 → 3RD-ICU 07-21 02:17
PROVIDERS: ADMIT Hospitalist; ATTEND Family Medicine
DX: T43.592A Poisoning by other antipsychotics and neuroleptics, intentional self-harm, initial encounter (principal); Y92.019 Unspecified place in single-family (private) house as the place of occurrence of the external cause; F20.9 Schizophrenia, unspecified; F31.9 Bipolar disorder, unspecified
CPT/HCPCS: 36415; 80048; 80076; 80307; 80320; 80329; 81003; 85025; 85610; 85730; 93005; 96361; 96374; 99285; J2405; J7030

== ENCOUNTER 2018-12-04 22:17 | Emergency (ER) | payer OTHER ==
[2018-12-04 22:49] LABS: Absolute Lymphocytes (CBC) 1.4 K/uL (0.7-4.9); Basophils % 0.4 % (0-1.3); Eosinophils % 0.1 % (0-4.4); Hematocrit 48.2 % (39.6-49.0); Lymphocytes % 16.2 % (15.3-44.8); Monocytes % 5.4 % (3.3-12.3); RBC Red Blood Cell Count 4.96 M/uL (4.33-5.43)
[2018-12-04] MEDS ORDERED: NA CHLORIDE 0.9% 1,000 ML ONE (22:57)
--- NOTE | 2018-12-05 00:31 | EDPHYS ---
Physician Documentation [facility] Name: Danny Anderson II Age: 33 yrs Sex: Male : 1985 Arrival Date: 12/04/2018 Time: 22:18 Bed 6 Private MD: ED Physician Glynn Hightower HPI: 12/04 22:35 This 33 yrs old Male presents to ER via EMS with complaints of Anxiety. pm1 22:35 The patient presents to the emergency department with anxiety, over homelessness. pm1 Onset: The symptoms/episode began/occurred today. Past psychiatric history: Prior diagnosis: bipolar disorder, schizophrenia. Associated signs and symptoms: The patient has no apparent associated signs or symptoms. The patient has not recently seen a physician. Patient was kicked out of his father's house about 3 days ago since he did not approve of his girlfriend. The patient has not eaten today and is planning to go to [place] to stay at his mother's house. Historical: - Allergies: 22:27 No Known Allergies; ea - Home Meds: 22:27 hydroxyzine HCl 50 mg Oral tab 1 tab three times a day [Active]; olanzapine 10 mg Oral ea tab 1 tab once daily [Active]; - PMHx: 22:27 Bipolar disorder; Schizophrenia; ea - PSHx: 22:27 None; ea - Immunization history:: Adult Immunizations up to date. - Social history:: Smoking status: Patient/guardian denies using tobacco. - Ebola Screening: : No symptoms or risks identified at this time. ROS: 22:35 Constitutional: Negative for fever, chills, and weight loss, Eyes: Negative for injury, pm1 pain, redness, and discharge, ENT: Negative for injury, pain, and discharge, Neck: Negative for injury, pain, and swelling, Cardiovascular: Negative for chest pain, palpitations, and edema, Respiratory: Negative for shortness of breath, cough, wheezing, and pleuritic chest pain, Abdomen/GI: Negative for abdominal pain, nausea, vomiting, diarrhea, and constipation, Back: Negative for injury and pain, : Negative for injury, bleeding, discharge, and swelling, MS/Extremity: Negative for injury and deformity, Skin: Negative for injury, rash, and discoloration, Neuro: Negative for headache, weakness, numbness, tingling, and seizure. 22:35 Psych: Positive for anxiety, Negative for homicidal ideation, suicide gesture, suicidal ideation. Exam: 22:35 Constitutional: This is a well developed, well nourished patient who is awake, alert, pm1 and in no acute distress. Head/Face: Normocephalic, atraumatic. Eyes: Pupils equal round and reactive to light, extra-ocular motions intact. Lids and lashes normal. Conjunctiva and sclera are non-icteric and not injected. Cornea within normal limits. Periorbital areas with no swelling, redness, or edema. ENT: Nares patent. No nasal discharge, no septal abnormalities noted. Tympanic membranes are normal and external auditory canals are clear. Oropharynx with no redness, swelling, or masses, exudates, or evidence of obstruction, uvula midline. Mucous membranes moist. Neck: Trachea midline, no thyromegaly or masses palpated, and no cervical lymphadenopathy. Supple, full range of motion without nuchal rigidity, or vertebral point tenderness. No Meningismus. Chest/axilla: Normal chest wall appearance and motion. Nontender with no deformity. No lesions are appreciated. Cardiovascular: Regular rate and rhythm with a normal S1 and S2. No gallops, murmurs, or rubs. Normal PMI, no JVD. No pulse deficits. Respiratory: Lungs have equal breath sounds bilaterally, clear to auscultation and percussion. No rales, rhonchi or wheezes noted. No increased work of breathing, no retractions or nasal flaring. Abdomen/GI: Soft, non-tender, with normal bowel sounds. No distension or tympany. No guarding or rebound. No evidence of tenderness throughout. Back: No spinal tenderness. No costovertebral tenderness. Full range of motion. Skin: Warm, dry with normal turgor. Normal color with no rashes, no lesions, and no evidence of cellulitis. MS/ Extremity: Pulses equal, no cyanosis. Neurovascular intact. Full, normal range of motion. 22:35 Neuro: Orientation: is normal, Motor: is normal, moves all fours, Gait: is steady, at a normal pace, without difficulty. Vital Signs: 22:26 BP 105 / 66; Pulse 77; Resp 18; Temp 98.4(O); Pulse Ox 97% on R/A; Weight 61.23 kg; ea Height 4 ft. 11 in. (149.86 cm); 23:02 BP 110 / 77; Pulse 80; Resp 18; Pulse Ox 100% on R/A; ea 12/05 00:19 BP 112 / 71; Pulse 86; Resp 18; Pulse Ox 95% on R/A; tl2 00:52 BP 108 / 72; Pulse 92; Resp 18; Pulse Ox 97% on R/A; tl2 12/04 22:26 Body Mass Index 27.27 (61.23 kg, 149.86 cm) ea MDM: 12/04 22:32 Patient medically screened. pm1 12/05 00:30 Data reviewed: vital signs. Data interpreted: Pulse oximetry: on room air is 95 %. pm1 Interpretation: normal. Counseling: I had a detailed discussion with the patient and/or guardian regarding: the historical points, exam findings, and any diagnostic results supporting the discharge/admit diagnosis. 12/04 22:33 Order name: CBC with Diff; Complete Time: 22:57 pm1 12/04 22:33 Order name: BMP; Complete Time: 23:13 pm1 12/04 22:33 Order name: IV Saline Lock; Complete Time: 22:39 pm1 Administered Medications: 12/04 22:45 Drug: NS 0.9% 1000 ml Route: IV; Rate: 1000 ml; Site: right antecubital; tl2 12/05 00:47 Follow up: IV Status: Completed infusion; IV Intake: 1000ml tl2 Disposition: 22:10 Co-signature as Attending Physician, Glynn Hightower MD Available for consultation at ps1 all times. . Disposition: 12/05/18 00:30 Discharged to Home. Impression: Acute stress reaction. - Condition is Stable. - Discharge Instructions: Stress and Stress Management. - Medication Reconciliation Form, Thank You Letter, Antibiotic Education, Prescription Opioid Use form. - Follow up: Emergency Department; When: As needed; Reason: Worsening of condition. Follow up: Private Physician; When: 2 - 3 days; Reason: Recheck today's complaints, Continuance of care, Re-evaluation by your physician. - Problem is new. - Symptoms have improved. Signatures: Dispatcher [employer] EDMS Paramjit James, SABI TERRAZZO MECHANIC HELPER pm1 Tiffanie Hope RN RN tl2 Khloe Rodriguez RN RN ea Singer, Glynn, MD MD ps1 Corrections: (The following items were deleted from the chart) 00:47 12/04 22:33 Urine Dipstick-Ancillary ordered. pm1 tl2 12/05 00:53 00:30 12/05/2018 00:30 Discharged to Home. Impression: Acute stress reaction. Condition tl2 is Stable. Forms are Medication Reconciliation Form, Thank You Letter, Antibiotic Education, Prescription Opioid Use. Follow up: Emergency Department; When: As needed; Reason: Worsening of condition. Follow up: Private Physician; When: 2 - 3 days; Reason: Recheck today's complaints, Continuance of care, Re-evaluation by your physician. Problem is new. Symptoms have improved. pm1
--- NOTE | 2018-12-05 00:31 | ER ---
Nurse's Notes [facility] Name: Danny Anderson II Age: 33 yrs Sex: Male : 1985 Arrival Date: 12/04/2018 Time: 22:18 Bed 6 Private MD: Diagnosis: Acute stress reaction Presentation: 12/04 22:19 Presenting complaint: EMS states: Pt went to [facility] accompanied with . Pt reported he ea has been feeling anxious and weak, reported they have nowhere to go, have been walking around in the heat all day and were in need of assistance. Pt reports abdominal pain that started this AM. Transition of care: patient was not received from another setting of care. No acute neurological deficit is noted. Onset of symptoms was December 04, 2018. Risk Assessment: Do you want to hurt yourself or someone else? Patient reports no desire to harm self or others. Initial Sepsis Screen: Does the patient meet any 2 criteria? No. Patient's initial sepsis screen is negative. Does the patient have a suspected source of infection? No. Patient's initial sepsis screen is negative. Care prior to arrival: None. 22:19 Method Of Arrival: EMS: [facility] ea 22:19 Acuity: UMER 3 ea Triage Assessment: 22:27 General: Appears in no apparent distress. Behavior is calm, cooperative, appropriate ea for age. Pain: Complains of pain in abdomen. 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 Neuro: Reports weakness generalized weakness. Cardiovascular: Patient's skin is warm and dry. Respiratory: Airway is patent Respiratory effort is even, unlabored, Respiratory pattern is regular, symmetrical. GI: Reports lower abdominal pain, upper abdominal pain, Parent/caregiver reports the patient having nausea. Derm: Skin is pink, warm \T\ dry. Musculoskeletal: Circulation, motion, and sensation intact. Historical: - Allergies: 22:27 No Known Allergies; ea - Home Meds: 22:27 hydroxyzine HCl 50 mg Oral tab 1 tab three times a day [Active]; olanzapine 10 mg Oral ea tab 1 tab once daily [Active]; - PMHx: 22:27 Bipolar disorder; Schizophrenia; ea - PSHx: 22:27 None; ea - Immunization history:: Adult Immunizations up to date. - Social history:: Smoking status: Patient/guardian denies using tobacco. - Ebola Screening: : No symptoms or risks identified at this time. Screenin:40 Fall Risk None identified. ea 22:53 Abuse screen: Denies threats or abuse. Nutritional screening: No deficits noted. ea Tuberculosis screening: No symptoms or risk factors identified. Assessment: 23:19 Reassessment: Patient and/or family updated on plan of care and expected duration. Pain ea level reassessed. Patient is alert, oriented x 3, equal unlabored respirations, skin warm/dry/pink. Awaiting on IV fluids to complete. 12/05 00:00 Reassessment: sandwich and drink provided to pt. tl2 00:51 Reassessment: Patient appears in no apparent distress at this time. Patient and/or tl2 family updated on plan of care and expected duration. Pain level reassessed. Patient is alert, oriented x 3, equal unlabored respirations, skin warm/dry/pink. pt verbalized understanding of discharge instructions, ambulatory out of ER with friend Patient states feeling better. Vital Signs: 12/04 22:26 BP 105 / 66; Pulse 77; Resp 18; Temp 98.4(O); Pulse Ox 97% on R/A; Weight 61.23 kg; ea Height 4 ft. 11 in. (149.86 cm); 23:02 BP 110 / 77; Pulse 80; Resp 18; Pulse Ox 100% on R/A; ea 12/05 00:19 BP 112 / 71; Pulse 86; Resp 18; Pulse Ox 95% on R/A; tl2 00:52 BP 108 / 72; Pulse 92; Resp 18; Pulse Ox 97% on R/A; tl2 12/04 22:26 Body Mass Index 27.27 (61.23 kg, 149.86 cm) ea ED Course: 12/04 22:18 Patient arrived in ED. ds1 22:26 Triage completed. ea 22:26 Paramjit James NP is PHCP. pm1 22:26 Glynn Hightower MD is Attending Physician. pm1 22:27 Arm band placed on right wrist. Patient placed in an exam room, on a stretcher, on ea pulse oximetry. 22:30 Patient has correct armband on for positive identification. Bed in low position. Call ea light in reach. Side rails up X 1. 22:39 Inserted saline lock: 20 gauge in right antecubital area, using aseptic technique. tl2 Blood collected. 22:44 Tiffanie Hope, RN is Primary Nurse. tl2 12/05 00:52 No provider procedures requiring assistance completed. IV discontinued, intact, tl2 bleeding controlled, No redness/swelling at site. Pressure dressing applied. Administered Medications: 12/04 22:45 Drug: NS 0.9% 1000 ml Route: IV; Rate: 1000 ml; Site: right antecubital; tl2 12/05 00:47 Follow up: IV Status: Completed infusion; IV Intake: 1000ml tl2 Intake: 00:47 IV: 1000ml; Total: 1000ml. tl2 Outcome: 00:30 Discharge ordered by MD. pm1 00:52 Discharged to home ambulatory, with family. tl2 00:52 Condition: stable 00:52 Discharge instructions given to patient, Instructed on discharge instructions, follow up and referral plans. Demonstrated understanding of instructions, follow-up care. 00:53 Patient left the ED. tl2 Signatures: Teena Veronica ds1 Paramjit James, SABI [employer]OPELLER LAYOUT WORKER pm1 Tiffanie Hope RN RN tl2 Khloe Rodriguez RN RN ea Corrections: (The following items were deleted from the chart) 12/04 23:20 23:19 Reassessment: Patient and/or family updated on plan of care and expected ea duration. Pain level reassessed. Patient is alert, oriented x 3, equal unlabored respirations, skin warm/dry/pink. Awaiting on fluids to complete ea 12/05 00:52 00:00 BP 108 / 72; Pulse 92bpm; Resp 18bpm; Pulse Ox 97% RA; tl2 tl2 00:52 00:51 Reassessment: Patient appears in no apparent distress at this time. Patient tl2 and/or family updated on plan of care and expected duration. Pain level reassessed. Patient is alert, oriented x 3, equal unlabored respirations, skin warm/dry/pink. Patient states feeling better. tl2
== END 2018-12-05 00:53 | disposition home or self-care (01) ==
LOC: ER 22:17
DX: F43.0 Acute stress reaction (principal); Z59.0 Homelessness; F31.9 Bipolar disorder, unspecified; F20.9 Schizophrenia, unspecified
CPT/HCPCS: 36415; 80048; 85025; 96360; 96361; 99284; J7030